=== PATIENT | female | born 1995 | race Caucasian/White ===

== ENCOUNTER 2017-04-21 23:09 | Emergency (ER) | payer OTHER ==
[~2017-04-21 23:09] MED LIST: BP PILL; CLEOCIN150 M1 PO; CLINDAMYCIN PHO40 GM TOP; KEFLEX500 M2 PO; NAPROSYN500 MG; NAPROXEN PO; NO MEDICATIONS; REGLAN10 MG PO; VICODIN 5/1 TAB 5/50 PO; VOLTAREN75 MG PO; ZYRTEC5 M2 PO
== END 2017-04-22 02:35 | disposition home or self-care (01) ==
LOC: CED 23:09
DX: L05.01 Pilonidal cyst with abscess (principal); I10 Essential (primary) hypertension; E78.5 Hyperlipidemia, unspecified; Z87.442 Personal history of urinary calculi; F17.290 Nicotine dependence, other tobacco product, uncomplicated; Z88.2 Allergy status to sulfonamides
CPT/HCPCS: 10080; 99283